=== PATIENT | male | born 1980 | race Caucasian/White ===

== ENCOUNTER 2016-10-20 22:56 | Emergency (ER) | payer MEDICAID ==
[~2016-10-20] VITALS: Ht 165.1 cm; Wt 74.8 kg
[~2016-10-20 22:56] MED LIST: DEXT30SUSP PO; No Home Medications; PROZ20CA11 PO; TRAZ50TA4 PO; deltasone PO; flexeril PO
[2016-10-20 23:19] LABS: MEAN CORPUSCULAR HEMOGLOBIN 29.3 pg (27.0-33.0); MEAN CORPUSCULAR HGB CONC 34.6 g/dl (32.0-36.5); MEAN CORPUSCULAR VOLUME 84.6 fl (80.0-96.0); RED CELL DISTRIBUTION WIDTH 13.7 % (11.5-14.5); WHITE BLOOD COUNT 12.4 K/mm3 (4.0-10.0)
[2016-10-20 23:54] LABS: ALBUMIN 4.6 GM/DL (3.2-5.2); ALBUMIN/GLOBULIN RATIO 1.64 (1.00-1.93); ALKALINE PHOSPHATASE 78 U/L (45-117); ALT/SGPT 24 U/L (12-78); ANION GAP 13 MEQ/L (8-16); AST/SGOT 20 U/L (15-37); BILIRUBIN,DIRECT 0.1 MG/DL (0.0-0.2); BILIRUBIN,TOTAL 0.4 MG/DL (0.2-1.0); BLOOD UREA NITROGEN 13 MG/DL (7-18); CALCIUM LEVEL 7.3 MG/DL (8.5-10.1); CARBON DIOXIDE LEVEL 26 MEQ/L (21-32); CHLORIDE LEVEL 106 MEQ/L (98-107); CREATININE FOR GFR 1.27 MG/DL (0.70-1.30); GLOMERULAR FILTRATION RATE > 60.0 (>60); GLUCOSE, FASTING 111 MG/DL (70-105); POTASSIUM SERUM 3.1 MEQ/L (3.5-5.1); SODIUM LEVEL 145 MEQ/L (136-145); TOTAL PROTEIN 7.4 GM/DL (6.4-8.2)
[2016-10-21 00:14] LABS: AMPHETAMINES LEVEL URINE NEGATIVE (NEGATIVE); BENZODIAZEPINES URINE NEGATIVE (NEGATIVE); COCAINE METABOLITE URINE NEGATIVE (NEGATIVE); CONTROL LINE INT CTR LINE PRESENT; METHADONE URINE NEGATIVE (NEGATIVE); OPIATES URINE NEGATIVE (NEGATIVE); TRICYCLIC ANTIDEPRESS URINE NEGATIVE (NEGATIVE)
[2016-10-21] MEDS ORDERED: ACETAMINOPHEN 325 MG TAB As Ordered ONE (04:57)
[2016-10-21] MEDS ORDERED: FIORICET TAB PO ONE (09:15)
--- NOTE | 2016-10-21 12:18 | EDDOCDS ---
Physician Documentation [facility] Name: Rajendra Coto Age: 36 yrs Sex: Male : 1980 Arrival Date: 10/20/2016 Time: 22:56 Bed OBSERVATION Private MD: Disposition: 10/21/16 12:04 Discharged to Home/Self Care. Impression: Bipolar disorder, current episode depressed, mild, Alcohol abuse. - Condition is Stable. - Discharge Instructions: Alcohol Intoxication. - Medication Reconciliation, Local Pharmacy Hours form. - Follow up: Private Physician; When: Call to arrange an appointment; Reason: Continuance of care. - Problem is chronic. - Symptoms have improved. Historical: - Allergies: No known drug Allergies; - Home Meds: 1. Percocet 5-325 mg Oral tab 1 tab every 4 hours 2. lisinopril 20 mg Oral tab 1 tab once daily - PMHx: Hypertension; Depression; Anxiety; - PSHx: Heart Surgery; - Social history: Smoking status: Patient states was never smoker of tobacco. Patient uses alcohol occasionally. street drugs, marijuana, No barriers to communication noted. - Family history: Not pertinent. - : The pt / caregiver states he / she is not on anticoagulants. Home medication list is obtained from the patient. - Exposure Risk Screening:: None identified. Vital Signs: 10/20 23:05 BP 125 / 82 (auto/); tm5 23:06 Pulse Ox 96% ; tm5 23:12 BP 125 / 82; Pulse 108; Resp 20; Temp 98.3(TE); Pulse Ox 98% on R/A; Weight 74.84 kg / tm5 164.99 lbs; Height 5 ft. 5 in. (165.10 cm); Pain 0/10; 23:30 BP 119 / 71 (auto/); tm5 23:31 Pulse 94 MON; Pulse Ox 95% on R/A; Pain 0/10; tm5 10/21 00:00 BP 119 / 74 (auto/); Pulse 103 MON; Resp 18 S; Pulse Ox 96% on R/A; tm5 00:00 tm5 00:30 BP 115 / 70 (auto/); tm5 00:30 Pulse 93 MON; tm5 01:00 BP 115 / 63 (auto/); tm5 01:01 Pulse 94 MON; tm5 01:30 BP 118 / 60 (auto/); tm5 01:31 Pulse 96 MON; tm5 02:00 BP 111 / 63 (auto/); tm5 02:01 Pulse 95 MON; tm5 02:30 BP 107 / 53 (auto/); tm5 02:30 Pulse 97 MON; tm5 03:00 BP 103 / 57 (auto/); tm5 03:00 Pulse 97 MON; tm5 03:30 BP 105 / 56 (auto/); tm5 03:30 Pulse 101 MON; Resp 18 S; Pulse Ox 98% on R/A; tm5 04:00 BP 107 / 57 (auto/); tm5 04:00 Pulse 98 MON; tm5 04:30 BP 101 / 57 (auto/); tm5 04:30 Pulse 109 MON; Resp 20 S; Pulse Ox 98% on R/A; tm5 05:35 BP 112 / 58; Pulse 98; Resp 20; Pulse Ox 99% on R/A; Pain 5/10; tm5 12:14 BP 147 / 97; Pulse 96; Resp 16; Temp 98.1(O); Pulse Ox 95% on R/A; Pain 0/10; ead 10/20 23:12 Body Mass Index 27.46 (74.84 kg, 165.10 cm) tm5 MDM: 10/20 23:06 Consult PFS/PSA/Director Specialty ordered. cs11 23:06 Consult PFS/PSA/Director Specialty: Patient's case requires discussion with on-call cs11 Psychiatrist ordered. 23:06 PSA/PFS to call Nursing Warehouse Shipping Supervisor, to enter patient data on [place] Safe Act if patient cs11 involuntarily admitted or transferred for SI or HI ordered. 23:06 Confirm accurate psychiatric medication list and times of last dosage ordered. cs11 23:06 Detain Pt Until Medically/PFS Cleared ordered. cs11 23:07 Acetaminophen Level Ordered. EDMS 23:07 Basic Metabolic Profile Ordered. EDMS 23:07 Complete Blood Count Ordered. EDMS 23:07 Drug Eval Toxicology ED Only Ordered. EDMS 23:07 Ethyl Alcohol (ethanol) Ordered. EDMS 23:07 Liver Profile Ordered. EDMS 23:07 Salicylate Level Ordered. EDMS 23:07 Thyroid Stimulating Hormone Ordered. EDMS 23:13 ECG WITH READING ER PHYS+CARDIAG ordered. EDMS 10/21 00:09 Acetaminophen Level Reviewed. cs11 00:09 Basic Metabolic Profile Reviewed. cs11 00:09 Complete Blood Count Reviewed. cs11 00:09 Ethyl Alcohol (ethanol) Reviewed. cs11 00:09 Salicylate Level Reviewed. cs11 00:09 Thyroid Stimulating Hormone Reviewed. cs11 00:09 Liver Profile Reviewed. cs11 04:41 Drug Eval Toxicology ED Only Reviewed. cs11 04:43 Acetaminophen Level Ordered. EDMS 04:43 Salicylate Level Ordered. EDMS 04:58 Acetaminophen Tablet 650 mg PO once ordered. tm5 05:35 REGULAR DIET PLASTIC PEDRO+DIET ordered. EDMS 05:39 Acetaminophen Level Reviewed. cs11 05:39 Salicylate Level Reviewed. cs11 05:43 Consult PFS/PSA/Socail Worker: Cleared medically for eval ordered. cs11 06:31 Consult PFS/PSA/Director Specialty complete. tm5 06:31 Consult PFS/PSA/Director Specialty: Patient's case requires discussion with on-call tm5 Psychiatrist complete. 08:03 Fioricet 1 tab-caps PO once ordered. fg 10:22 Financial registration complete. mm15 10:24 [facility] Payment Agreement was scanned into [employer] and attached to record. mm15 10:51 Consult PFS/PSA/Socail Worker: Cleared medically for eval complete. ml4 11:34 PSA/PFS to call Nursing Warehouse Shipping Supervisor, to enter patient data on [place] Safe Act if patient ml4 involuntarily admitted or transferred for SI or HI complete. 11:55 REGULAR DIET PLASTIC PEDRO+DIET ordered. EDMS 12:14 PSA Outpatient Referrals was scanned into [employer] and attached to record. ml4 Administered Medications: 04:59 Drug: Acetaminophen 650 mg [acetaminophen 325 mg tablet (2 tabs)] Route: PO; tm5 05:36 Follow up: Response: No Adverse Reaction; Pain is decreased tm5 09:36 Drug: Fioricet 1 tab-caps {Note: medication received from pharmacy.} Route: PO; ead Signatures: Dispatcher [employer] EDMS Kaleb Soledad, PSA PSA ml4 César Nassar, DO cs11 Edgar Celis mm15 Shauna Watters RN RN Annie Brizuela MD MD fg Ashleigh Ruth RN RN tm5 The chart was reviewed and I authenticate all verbal orders and agree with the evaluation and treatment provided.Attachments: 10:24 [facility] Payment Agreement mm15 MTDD
--- NOTE | 2016-10-21 12:18 | EDDOCDS ---
Nurse's Notes [facility] Name: Rajendra Coto Age: 36 yrs Sex: Male : 1980 Arrival Date: 10/20/2016 Time: 22:56 Bed OBSERVATION Private MD: Diagnosis: Bipolar disorder, current episode depressed, mild;Alcohol abuse Presentation: 10/20 23:07 Presenting complaint: Patient states: pt states "I don't want to live anymore so tm5 tonight I have a lot of Alcohol to drink, I have smoked a lot of [place], I took some Percocet (unknown amount & unknown time), I took some Ibuprofen also (unknown amount & unknown time), My mom is dying & I don't want to be here without her", pt arrived with [place] . Mental Health Triage Level: Level 2: The patient displays active suicidal ideations. The patient was brought to the ED for evaluation because of a legal pickup order. Adult Sepsis Screening: The patient does not have new or worsening altered mentation. Patient's respiratory rate is less than 22. Systolic blood pressure is greater than 100. Patient has a qSOFA score of 0- Negative Sepsis Screen. Suicide/Homicide risk assessment- The patient admits to and/or has been reported to be having suicidal ideations. The patient reports that he/she has a recent or current history of substance abuse. The patient reports that he/she has a prior history of suicide attempt and/or organized plan. The patient reports that he/she has experienced a significant life altering event in the last 30 days. Status: Patient is not a radiology equipment servicer or dependent. Transition of care: patient was not received from another setting of care. 23:07 Acuity: CATALINA Level 3 tm5 23:07 Method Of Arrival: Police Car tm5 Triage Assessment: 23:12 General: Appears in no apparent distress, unkempt, Behavior is cooperative, drowsy. tm5 Pain: Denies pain. Pt Declines HIV testing. The patient is triaged at the bedside. See Assessment in Nurses Notes section of ED record. Neurological: Level of Consciousness is awake, alert, Oriented to person, place, time. Cardiovascular: Rhythm is sinus tachycardia No ectopy. Respiratory: Airway is patent Respiratory effort is even, unlabored, Respiratory pattern is regular, symmetrical, Breath sounds are clear bilaterally. GI: Abdomen is non- distended Bowel sounds present X 4 quads. Abd is soft and non tender X 4 quads. : No deficits noted. Derm: Skin is pink, warm & dry. normal. Historical: - Allergies: No known drug Allergies; - Home Meds: 1. Percocet 5-325 mg Oral tab 1 tab every 4 hours 2. lisinopril 20 mg Oral tab 1 tab once daily - PMHx: Hypertension; Depression; Anxiety; - PSHx: Heart Surgery; - Social history: Smoking status: Patient states was never smoker of tobacco. Patient uses alcohol occasionally. street drugs, marijuana, No barriers to communication noted. - Family history: Not pertinent. - : The pt / caregiver states he / she is not on anticoagulants. Home medication list is obtained from the patient. - Exposure Risk Screening:: None identified. Screenin:15 Screening information is obtained from the patient. Fall risk: At risk due to apparent tm5 chemical impairment, apparent cognitive impairment. Assistance ADL's: requires no assistance with activities of daily living. Abuse/DV Screen: The patient / caregiver reports he/she is: not in a situation that causes fear, pain or injury. Nutritional screening: No deficits noted. Advance Directives: Currently, there is no health care proxy. There is no active DNR order. home support is adequate. Assessment: 23:15 General: see triage assessment . tm5 23:53 General: this RN called Poison control recommendations for 6 hour observation & Basic tm5 labs with Tylenol & Aspirin, they will follow up later, MD aware of this . 10/21 00:02 Reassessment: Patient appears in no apparent distress at this time. Patient states tm5 symptoms have improved. pt provided with Boxed meal & kamlesh sabino . Cardiovascular: Rhythm is sinus tachycardia No ectopy. 00:52 Reassessment: Patient appears in no apparent distress at this time. pt resting quietly tm5 at this time, eyes closed, respirations easy . Cardiovascular: Rhythm is sinus rhythm No ectopy. 02:04 Reassessment: Patient appears in no apparent distress at this time. pt resting with tm5 eyes closed, resp easy, appears to be sleeping . Cardiovascular: Rhythm is sinus rhythm No ectopy. 04:30 General: Appears in no apparent distress, Behavior is cooperative. Pain: Denies pain. kas2 Cardiovascular: Rhythm is sinus rhythm. Respiratory: Airway is patent Respiratory effort is even, unlabored. Derm: Skin is normal. 04:33 Reassessment: Patient appears in no apparent distress at this time. pt remains tm5 sleeping, resp easy. Cardiovascular: Rhythm is sinus tachycardia No ectopy. 04:50 General: pt out of bed going through his belongings telling staff that his wallet is tm5 missing & he needs to go home, told pt he wasn't able to leave the ER because he voiced issues of Suicidal thoughts & he had repeat labs to be drawn, pt then complains of headache & returns to bed asking for Tylenol for headache & [place] MD aster aware, orders received . 05:01 General: provided pt with kamlesh sabino & boxed meal . tm5 05:35 General: pt moved to [address] area. tm5 05:36 General: Appears in no apparent distress, Behavior is cooperative, restless. General: slm pt talking on phone at this time security observing . Respiratory: Airway is patent Respiratory effort is even, unlabored. 06:07 General: Appears in no apparent distress, Behavior is cooperative. Respiratory: Airway af2 is patent Respiratory effort is even, unlabored. Derm: Skin is normal. 06:40 General: Appears in no apparent distress, Behavior is cooperative. Pain: Denies pain. kas2 Respiratory: Airway is patent Respiratory effort is even, unlabored. Derm: Skin is normal. 09:00 General: Appears in no apparent distress, comfortable, Behavior is cooperative. ead Neurological: Level of Consciousness is awake, alert, obeys commands. Respiratory: Airway is patent Respiratory effort is even, unlabored. Derm: Skin is pink, warm & dry. 10:00 General: Appears in no apparent distress, Behavior is cooperative. Respiratory: Airway ead is patent Respiratory effort is even, unlabored. Derm: Skin is pink, warm & dry. 11:00 General: Appears in no apparent distress, comfortable, Behavior is cooperative. ead Respiratory: Airway is patent Respiratory effort is even, unlabored. Derm: Skin is pink, warm & dry. 12:16 General: Appears in no apparent distress, comfortable, Behavior is appropriate for age, ead cooperative. Pain: Denies pain. Neurological: Level of Consciousness is awake, alert, obeys commands, Oriented to person, place, time. Respiratory: Airway is patent Respiratory effort is even, unlabored. Derm: Skin is pink, warm & dry. Mental Health Eval: 10/20 23:12 Status: The patient is not a radiology equipment servicer or dependent. Referral cl Information: Evaluation referral is generated by a police agency: [employer] on .. The patient was referred for evaluation because Pt reportedly drinking tonight and apparently ingested medications, expressed SI to Police. Pt has hx of depression and ETOH abuse, prior psych admission to [facility] 08/07 for depression/SI. . 10/21 11:10 Mental health consult is initiated at 11:00. [facility] Behavioral Health: The patient is not ml4 an established patient of [facility] Behavioral Health. Subjective: The patients chief complaint is pt states, "I don't want to kill myself, I was just drunk." Pt reports a significant alcohol and substance abuse hx, sober for the past 20 months. Admits running into a friend at the [facility] last night and states, "I just got hammered." States he ingested some Percocet and drank a significant amount of alcohol not to kill himself, but because he wanted to "libertarian with his old friend." Pt adamantly denies SI and HI, able to CFS. He reports a hx of one previous [facility] after voicing SI with plan to OD or jump [place]. Pt is wanting to be discharged with follow up to [facility] on Sunday for housing. . Delusions are denied. Patient's mood is anxious, Hallucinations are denied. Mental Health history: ADHD, alcohol abuse, depression, abusing prescription drugs. Mental Health Admissions: [facility] Current Outpatient Mental Health Services: None. Current living environment is The patient currently lives alone at [facility](emergency housing, arranged by [facility]) until he is able follow up with [facility] on Sunday. Pt admits leaving his previous residence with cousin due to "wanting to do things on my own." . The patient is single. Patient presents to Emergency Department with the following symptoms within the past 2 weeks: alcohol abuse, anger, anxiety, depressed mood, drug abuse, poor concentration, poor impulse control, suicidal ideation with no plan. Substance abuse: Patient uses of liquor, 1 bottle Patient uses opiates Type Used: Percocet Patient uses tobacco 1/2 pack Frequency daily. Mental status exam: Patients appearance is appropriate, Patient's behavior is cooperative, Speech is normal. Affect is restricted. Mood is anxious. Hallucinations are denied. Appetite is normal. Memory is good. Energy level is normal. Content of thought is normal. Thought process is intact. Cognitive level is oriented to person, place, time and situation Patient's insight is poor. Judgement is fair. Rapport with interviewer is good. Suicidal Ideation is denied. Homicidal ideation is denied. 12:03 Disposition: Medically cleared for disposition by César Nassar DO Psychiatric Consult ml4 is performed by phone with Dr Magnus Rizo MD. [facility] Admission Criteria: Not Applicable. [place] Safe Act: [place] Safe Act is not applicable because the patient does not display any suicidal or homicidal ideations and does not pose a risk to self or others. DSM-V Differential Diagnosis: Alcohol Intoxication. Insurance Pre-Certification: Not Required. Narrative: Pt is able to be discharged from [facility]. He continues to deny SI and HI, able to CFS. Referrals for outpt services was given at bedside and directed to follow up with [facility] for further tx. Psych: 10/20 23:17 Mental Health Triage Level: Level 2: The patient displays active suicidal ideations. tm5 The patient was brought to the ED for evaluation because of a legal pickup order. Subjective: The patients chief complaint is pt states "I wan to , I don't want to ricci life anymore, my mom is sick & I want to with her". Delusions are denied. Patient's mood is hopeless. Objective: Patient is cooperative, using poor eye contact, Speech is normal. Affect is appropriate. Substance abuse: Patient uses beer, 12 daily. Last use was 1 hours ago. Patient uses marijuana 2-4 joints rarely smoked all day today Last use was 1 hours ago. Consultation: ED MD notified of patients status, 23:19 Emergency MH Worker made aware of pt status. Vital Signs: 23:05 BP 125 / 82 (auto/); tm5 23:06 Pulse Ox 96% ; tm5 23:12 BP 125 / 82; Pulse 108; Resp 20; Temp 98.3(TE); Pulse Ox 98% on R/A; Weight 74.84 kg; tm5 Height 5 ft. 5 in. (165.10 cm); Pain 0/10; 23:30 BP 119 / 71 (auto/); tm5 23:31 Pulse 94 MON; Pulse Ox 95% on R/A; Pain 0/10; tm5 10/21 00:00 BP 119 / 74 (auto/); Pulse 103 MON; Resp 18 S; Pulse Ox 96% on R/A; tm5 00:00 tm5 00:30 BP 115 / 70 (auto/); tm5 00:30 Pulse 93 MON; tm5 01:00 BP 115 / 63 (auto/); tm5 01:01 Pulse 94 MON; tm5 01:30 BP 118 / 60 (auto/); tm5 01:31 Pulse 96 MON; tm5 02:00 BP 111 / 63 (auto/); tm5 02:01 Pulse 95 MON; tm5 02:30 BP 107 / 53 (auto/); tm5 02:30 Pulse 97 MON; tm5 03:00 BP 103 / 57 (auto/); tm5 03:00 Pulse 97 MON; tm5 03:30 BP 105 / 56 (auto/); tm5 03:30 Pulse 101 MON; Resp 18 S; Pulse Ox 98% on R/A; tm5 04:00 BP 107 / 57 (auto/); tm5 04:00 Pulse 98 MON; tm5 04:30 BP 101 / 57 (auto/); tm5 04:30 Pulse 109 MON; Resp 20 S; Pulse Ox 98% on R/A; tm5 05:35 BP 112 / 58; Pulse 98; Resp 20; Pulse Ox 99% on R/A; Pain 5/10; tm5 12:14 BP 147 / 97; Pulse 96; Resp 16; Temp 98.1(O); Pulse Ox 95% on R/A; Pain 0/10; ead 10/20 23:12 Body Mass Index 27.46 (74.84 kg, 165.10 cm) tm5 Vitals: 10/20 23:12 Log In Time N/A - ambulance arrival. tm5 ED Course: 22:57 Patient visited by Kerri Anders, Tar And Ammonia Pump Operator. [facility] 22:57 Patient moved to [facility] 22:58 César Nassar DO is Attending Physician. cs11 22:58 Patient visited by César Nassar DO. cs11 23:07 Patient visited by Ashleigh Ruth RN. tm5 23:11 Triage Initiated tm5 23:15 Awaiting ED physician evaluation. tm5 23:15 The patient / caregiver is instructed regarding the plan of care and ED course. Patient tm5 has correct armband on for positive identification. Placed in psych safe attire. Bed in low position. Call light in reach. Side rails up X2. Security observing. hall monitor on. Pulse ox on. NIBP on. 23:15 Inserted saline lock: 18 gauge in right antecubital area and blood collected. The tm5 patient tolerated the procedure well. Labs drawn. (by ED staff). Sent per order to lab. 23:33 Patient moved to OBSERVATION cs11 23:40 EKG done. (by ED staff). Reviewed by César Nassar DO. jmv 23:42 Patient visited by Guille Roque PCA. jmv 10/21 00:02 Patient visited by Ashleigh Ruth,SAKINA. tm5 00:52 Patient visited by Ashleigh Ruth,SAKINA. tm5 02:04 Patient visited by Ashleigh Ruth,SAKINA. tm5 04:33 Patient visited by Ashleigh Ruth,SAKINA. tm5 04:41 Patient visited by Ashleigh Ruth,SAKINA. tm5 04:58 Patient visited by Ashleigh Ruth,SAKINA. tm5 05:33 Patient moved to [facility] mas 05:34 Patient visited by Ashleigh Ruth,SAKINA. tm5 05:35 Patient visited by Leola Sherman LPN. slm 05:35 Discontinued lock intact, bleeding controlled, pressure dressing applied, No tm5 redness/swelling at site. 05:37 Patient visited by Leola Sherman LPN. slm 05:44 Patient visited by Ronnell Beltrán. mas 05:44 Patient moved to OBSERVATION cs11 05:48 Patient name changed from Rajendra\\S\\\\S\\Nnamdi\\S\\ to Rajendra\\S\\ \\S\\Nnamdi. EDMS 05:52 Pt greeted and oriented to ED. Patient advised of names of staff involved in care, [facility] location of call [place], wait times and NPO status. Patient has correct armband on for positive identification. Placed in psych safe attire. Bed in low position. Call light in reach. Side rails up X 1. Security observing. Property property removed prior to arrival in [facility]. Upon arrival pt belongings handed over to SA \\T\\ which time it was inventoried & placed in locked locker #3. Door closed. Noise minimized. Moved to private room. PO fluids given. Verbal reassurance given. Warm blanket given. Pillow given. Psych Safety Check: Location: Psych Room. Visual Assessment: agitated, cooperative \\T\\ this time. 06:03 Patient visited by Ronnell Beltrán. mas 06:08 Patient visited by Latoya Easley RN. af2 06:12 Leola Sherman LPN is Primary Nurse. slm 06:15 Patient visited by Ronnell Beltrán. mas 06:30 Patient visited by Ronnell Beltrán. mas 06:40 Patient visited by Selam Castro RN. kas2 06:45 Patient visited by Rowan Tee PCA. tmm1 07:00 Patient visited by Rowan Tee PCA. tmm1 07:06 Report received from Leola Jade LPN. ead 07:18 Patient visited by Rowan Tee BROOM BUILDER. tmm1 07:30 Psych Safety Check: Location: Psych Room. Visual Assessment: pt came out of room tmm1 inquiring when he will be able to speak to a social and human services assistant, as passed off during report pt informed social and human services assistant will be in around 10am when clinically sober to discuss care plan. Pt accepted that information and returned to room. 07:45 Psych Safety Check: Location: Psych Room. Visual Assessment: Cooperative. tmm1 07:47 Psych Safety Check: Location: Psych Room. Visual Assessment: pt request for tylenol for tmm1 a headache, RN informed. 07:52 Patient visited by Rowan Tee BROOM BUILDER. tmm1 08:09 Patient visited by Rowan Tee BROOM BUILDER. tmm1 08:25 Patient visited by Rowan Tee, BROOM BUILDER. tmm1 08:45 Patient visited by Rowan Tee, BROOM BUILDER. tmm1 09:17 Patient visited by Rowan Tee, BROOM BUILDER. tmm1 09:39 Patient visited by Rowan Tee BROOM BUILDER. tmm1 10:02 Patient visited by Homar Hughes Security Aide. pjf 10:13 Patient visited by Homar Hughes Security Aide. pjf 10:24 [facility] [place] was scanned into Snocap and attached to record. mm15 10:35 Patient visited by Homar Hughes Security Aide. pjf 10:44 Patient visited by Homar Hughes Security Aide. pjf 10:46 Patient visited by Homar Hughes Security Aide. pjf 11:14 Patient visited by Homar Hughes Security Aide. pjf 11:32 Patient visited by Homar Hughes Security Aide. pjf 11:47 Patient visited by Homar Hughes Security Aide. pjf 12:08 Patient visited by Rowan Tee PCA. tmm1 12:14 [facility] Outpatient Referrals was scanned into Snocap and attached to record. ml4 12:16 No procedures done that require assistance. ead Administered Medications: 04:59 Drug: Acetaminophen 650 mg [acetaminophen 325 mg tablet (2 tabs)] Route: PO; tm5 05:36 Follow up: Response: No Adverse Reaction; Pain is decreased tm5 09:36 Drug: Fioricet 1 tab-caps {Note: medication received from pharmacy.} Route: PO; ead Order Results: Lab Order: Acetaminophen Level; SPEC'M 10/20/16 23:10 Test: ACETAMINOPHEN LEVEL; Value: < 2.0; Range: 10.0-30.0; Abnormal: Below low normal; Units: UG/ML; Status: F Lab Order: Basic Metabolic Profile; SPEC'M 10/20/16 23:10 Test: GLUCOSE, FASTING; Value: 111; Range: 70-105; Abnormal: Above high normal; Units: MG/DL; Status: F Test: BLOOD UREA NITROGEN; Value: 13; Range: 7-18; Units: MG/DL; Status: F Test: CREATININE FOR GFR; Value: 1.27; Range: 0.70-1.30; Units: MG/DL; Status: F Test: GLOMERULAR FILTRATION RATE; Value: > 60.0; Range: >60; Status: F Test: SODIUM LEVEL; Value: 145; Range: 136-145; Units: MEQ/L; Status: F Test: POTASSIUM SERUM; Value: 3.1; Range: 3.5-5.1; Abnormal: Below low normal; Units: MEQ/L; Status: F Test: CHLORIDE LEVEL; Value: 106; Range: 98-107; Units: MEQ/L; Status: F Test: CARBON DIOXIDE LEVEL; Value: 26; Range: 21-32; Units: MEQ/L; Status: F Test: ANION GAP; Value: 13; Range: 8-16; Units: MEQ/L; Status: F Test: CALCIUM LEVEL; Value: 7.3; Range: 8.5-10.1; Abnormal: Below low normal; Units: MG/DL; Status: F Test Note: ; Units are mL/min/1.73 m2 Chronic Kidney Disease Staging per NKF: Stage I & II GFR >=60 Normal to Mildly Decreased Stage III GFR 30-59 Moderately Decreased Stage IV GFR 15-29 Severely Decreased Stage V GFR <15 Very Little GFR Left ESRD GFR <15 on AUTOMATIC SPINNING LATHE OPERATOR Lab Order: Complete Blood Count; SPEC'M 10/20/16 23:10 Test: WHITE BLOOD COUNT; Value: 12.4; Range: 4.0-10.0; Abnormal: Above high normal; Units: K/mm3; Status: F Test: RED BLOOD COUNT; Value: 5.50; Range: 4.30-6.10; Units: M/mm3; Status: F Test: HEMOGLOBIN; Value: 16.1; Range: 14.0-18.0; Units: g/dl; Status: F Test: HEMATOCRIT; Value: 46.6; Range: 42.0-52.0; Units: %; Status: F Test: MEAN CORPUSCULAR VOLUME; Value: 84.6; Range: 80.0-96.0; Units: fl; Status: F Test: MEAN CORPUSCULAR HEMOGLOBIN; Value: 29.3; Range: 27.0-33.0; Units: pg; Status: F Test: MEAN CORPUSCULAR HGB CONC; Value: 34.6; Range: 32.0-36.5; Units: g/dl; Status: F Test: RED CELL DISTRIBUTION WIDTH; Value: 13.7; Range: 11.5-14.5; Units: %; Status: F Test: PLATELET COUNT, AUTOMATED; Value: 306; Range: 150-450; Units: k/mm3; Status: F Lab Order: Drug Eval Toxicology ED Only; SPEC'M 10/20/16 23:56 Test: AMPHETAMINES LEVEL URINE; Value: NEGATIVE; Range: NEGATIVE; Status: F Test: BARBITURATES URINE; Value: NEGATIVE; Range: NEGATIVE; Status: F Test: BENZODIAZEPINES URINE; Value: NEGATIVE; Range: NEGATIVE; Status: F Test: CANNABINOIDS URINE; Value: POSITIVE; Range: NEGATIVE; Abnormal: Above high normal; Status: F Test: COCAINE METABOLITE URINE; Value: NEGATIVE; Range: NEGATIVE; Status: F Test: METHADONE URINE; Value: NEGATIVE; Range: NEGATIVE; Status: F Test: OPIATES URINE; Value: NEGATIVE; Range: NEGATIVE; Status: F Test: TRICYCLIC ANTIDEPRESS URINE; Value: NEGATIVE; Range: NEGATIVE; Status: F Test Note: ; FALSE POSITIVE RESULTS CAN BE CAUSED BY THE USE OF PANTOPRAZOLE (PROTONIX). Lab Order: Ethyl Alcohol (ethanol); SPEC' 10/20/16 23:10 Test: ETHYL ALCOHOL (ETHANOL); Value: 0.318; Range: 0.000-0.010; Abnormal: Above high normal; Units: %; Status: F Lab Order: Liver Profile; SPEC' 10/20/16 23:10 Test: AST/SGOT; Value: 20; Range: 15-37; Units: U/L; Status: F Test: ALT/SGPT; Value: 24; Range: 12-78; Units: U/L; Status: F Test: ALKALINE PHOSPHATASE; Value: 78; Range: 45-117; Units: U/L; Status: F Test: BILIRUBIN,TOTAL; Value: 0.4; Range: 0.2-1.0; Units: MG/DL; Status: F Test: BILIRUBIN,DIRECT; Value: 0.1; Range: 0.0-0.2; Units: MG/DL; Status: F Test: TOTAL PROTEIN; Value: 7.4; Range: 6.4-8.2; Units: GM/DL; Status: F Test: ALBUMIN; Value: 4.6; Range: 3.2-5.2; Units: GM/DL; Status: F Test: ALBUMIN/GLOBULIN RATIO; Value: 1.64; Range: 1.00-1.93; Status: F Lab Order: Salicylate Level; SPEC' 10/20/16 23:10 Test: SALICYLATE LEVEL; Value: 2.2; Range: 5.0-30.0; Abnormal: Below low normal; Units: MG/DL; Status: F Lab Order: Thyroid Stimulating Hormone; SPEC' 10/20/16 23:10 Test: THYROID STIMULATING HORMONE; Value: 4.730; Range: 0.358-3.740; Abnormal: Above high normal; Units: uIU/ML; Status: F Lab Order: Acetaminophen Level; SPEC'M 10/21/16 04:51 Test: ACETAMINOPHEN LEVEL; Value: < 2.0; Range: 10.0-30.0; Abnormal: Below low normal; Units: UG/ML; Status: F Lab Order: Salicylate Level; SPEC'M 10/21/16 04:51 Test: SALICYLATE LEVEL; Value: 2.1; Range: 5.0-30.0; Abnormal: Below low normal; Units: MG/DL; Status: F Outcome: 05:37 Property removed, inventory done, secured in belongings bag- placed in locked locker. slm 12:04 Discharge ordered by Provider. fg 12:15 Discharge Assessment: Patient awake and alert. obeys commands, Oriented to person, ead place and time. patient administered narcotics - no. The following High Risk Discharge criteria are identified: Yes, Pt arrived with ETOH intoxication, pt evaluated by [facility] and provided safe discharge instructions. Discharged to home ambulatory, via cab provided by PSA. Condition: improved. Discharge instructions given to patient, Instructed on discharge instructions, follow up and referral plans. Demonstrated understanding of instructions, Pt was receptive of discharge instructions/ teaching. No special radiology studies were completed. 12:16 Patient left the ED. ead Signatures: Dispatcher [employer] EDMS Jono Fuentes, PSA PSA cl Ellen, Homar, Security Aide [facility] Soledad Manuel, PSA PSA ml4 Ronnell Beltrán Craig, DO DO cs11 McLjailyn, Rowan, BROOM BUILDER BROOM BUILDER tmm1 Edgar Celis mm15 Leola Sherman,ROUND CORNER CUTTER OPERATOR ROUND CORNER CUTTER OPERATOR Shauna Craft,RN Kerri Mancera, Tar And Ammonia Pump Operator Unit Latoya Esteves,RN RN Annie Green MD MD fg Smith, Kim,SAKINA RN franky2 Guille Roque, BROOM BUILDER BROOM BUILDER Ashleigh Dumont,RN RN tm5 Corrections: (The following items were deleted from the chart) 10/20 23:43 23:07 Presenting complaint: Patient states: pt states "I don't want to live anymore so tm5 tonight I have a lot of Alcohol to drink, I have smoked a lot of [place], I took some Percocet (unknown amount), I took some Ibuprofen also, My mom is dying & I don't want to be here without her", pt arrived with [place] [employer] tm5 MTDD
--- NOTE | 2016-10-22 15:31 | ECGEPIP ---
Stationary ECG Study [facility] - ED Test Date: 2016-10-20 Pat Name: JT CAICEDO Department: Room: - Gender: M Nozzleman: marah : 1980 Requested By: ALMAS MCCARTHY Order Number: [id number] Reading MD: Patricia Beckwith Measurements Intervals [place] Rate: 95 P: 39 [place]: 142 QRS: 25 QRSD: 90 T: 32 QT: 367 QTc: 462 Interpretive Statements SINUS RHYTHM NSTTW ABNORMALITY COMPARED 07/30/14 Electronically Signed On 10-22-2016 15:31:26 EST by Patricia Beckwith
--- NOTE | 2016-10-23 13:17 | EDDOCDS ---
Nurse's Notes [facility] Name: Jt Coto Age: 36 yrs Sex: Male : 1980 Arrival Date: 10/20/2016 Time: 22:56 Bed OBSERVATION Private MD: Diagnosis: Bipolar disorder, current episode depressed, mild;Alcohol abuse Presentation: 10/20 23:07 Presenting complaint: Patient states: pt states "I don't want to live anymore so tm5 tonight I have a lot of Alcohol to drink, I have smoked a lot of [place], I took some Percocet (unknown amount & unknown time), I took some Ibuprofen also (unknown amount & unknown time), My mom is dying & I don't want to be here without her", pt arrived with [place] . Mental Health Triage Level: Level 2: The patient displays active suicidal ideations. The patient was brought to the ED for evaluation because of a legal pickup order. Adult Sepsis Screening: The patient does not have new or worsening altered mentation. Patient's respiratory rate is less than 22. Systolic blood pressure is greater than 100. Patient has a qSOFA score of 0- Negative Sepsis Screen. Suicide/Homicide risk assessment- The patient admits to and/or has been reported to be having suicidal ideations. The patient reports that he/she has a recent or current history of substance abuse. The patient reports that he/she has a prior history of suicide attempt and/or organized plan. The patient reports that he/she has experienced a significant life altering event in the last 30 days. Status: Patient is not a client services director or dependent. Transition of care: patient was not received from another setting of care. 23:07 Acuity: [place] Level 3 tm5 23:07 Method Of Arrival: Police Car tm5 Triage Assessment: 23:12 General: Appears in no apparent distress, unkempt, Behavior is cooperative, drowsy. tm5 Pain: Denies pain. Pt Declines HIV testing. The patient is triaged at the bedside. See Assessment in Nurses Notes section of ED record. Neurological: Level of Consciousness is awake, alert, Oriented to person, place, time. Cardiovascular: Rhythm is sinus tachycardia No ectopy. Respiratory: Airway is patent Respiratory effort is even, unlabored, Respiratory pattern is regular, symmetrical, Breath sounds are clear bilaterally. GI: Abdomen is non- distended Bowel sounds present X 4 quads. Abd is soft and non tender X 4 quads. : No deficits noted. Derm: Skin is pink, warm & dry. normal. Historical: - Allergies: No known drug Allergies; - Home Meds: 1. Percocet 5-325 mg Oral tab 1 tab every 4 hours 2. lisinopril 20 mg Oral tab 1 tab once daily - PMHx: Hypertension; Depression; Anxiety; - PSHx: Heart Surgery; - Social history: Smoking status: Patient states was never smoker of tobacco. Patient uses alcohol occasionally. street drugs, marijuana, No barriers to communication noted. - Family history: Not pertinent. - : The pt / caregiver states he / she is not on anticoagulants. Home medication list is obtained from the patient. - Exposure Risk Screening:: None identified. Screenin:15 Screening information is obtained from the patient. Fall risk: At risk due to apparent tm5 chemical impairment, apparent cognitive impairment. Assistance ADL's: requires no assistance with activities of daily living. Abuse/DV Screen: The patient / caregiver reports he/she is: not in a situation that causes fear, pain or injury. Nutritional screening: No deficits noted. Advance Directives: Currently, there is no health care proxy. There is no active DNR order. home support is adequate. Assessment: 23:15 General: see triage assessment . tm5 23:53 General: this RN called Poison control recommendations for 6 hour observation & Basic tm5 labs with Tylenol & Aspirin, they will follow up later, MD aware of this . 10/21 00:02 Reassessment: Patient appears in no apparent distress at this time. Patient states tm5 symptoms have improved. pt provided with Boxed meal & kamlesh sabino . Cardiovascular: Rhythm is sinus tachycardia No ectopy. 00:52 Reassessment: Patient appears in no apparent distress at this time. pt resting quietly tm5 at this time, eyes closed, respirations easy . Cardiovascular: Rhythm is sinus rhythm No ectopy. 02:04 Reassessment: Patient appears in no apparent distress at this time. pt resting with tm5 eyes closed, resp easy, appears to be sleeping . Cardiovascular: Rhythm is sinus rhythm No ectopy. 04:30 General: Appears in no apparent distress, Behavior is cooperative. Pain: Denies pain. kas2 Cardiovascular: Rhythm is sinus rhythm. Respiratory: Airway is patent Respiratory effort is even, unlabored. Derm: Skin is normal. 04:33 Reassessment: Patient appears in no apparent distress at this time. pt remains tm5 sleeping, resp easy. Cardiovascular: Rhythm is sinus tachycardia No ectopy. 04:50 General: pt out of bed going through his belongings telling staff that his wallet is tm5 missing & he needs to go home, told pt he wasn't able to leave the ER because he voiced issues of Suicidal thoughts & he had repeat labs to be drawn, pt then complains of headache & returns to bed asking for Tylenol for headache & [place] MD aster aware, orders received . 05:01 General: provided pt with kamlesh sabino & boxed meal . tm5 05:35 General: pt moved to [address] area. tm5 05:36 General: Appears in no apparent distress, Behavior is cooperative, restless. General: slm pt talking on phone at this time security observing . Respiratory: Airway is patent Respiratory effort is even, unlabored. 06:07 General: Appears in no apparent distress, Behavior is cooperative. Respiratory: Airway af2 is patent Respiratory effort is even, unlabored. Derm: Skin is normal. 06:40 General: Appears in no apparent distress, Behavior is cooperative. Pain: Denies pain. kas2 Respiratory: Airway is patent Respiratory effort is even, unlabored. Derm: Skin is normal. 09:00 General: Appears in no apparent distress, comfortable, Behavior is cooperative. ead Neurological: Level of Consciousness is awake, alert, obeys commands. Respiratory: Airway is patent Respiratory effort is even, unlabored. Derm: Skin is pink, warm & dry. 10:00 General: Appears in no apparent distress, Behavior is cooperative. Respiratory: Airway ead is patent Respiratory effort is even, unlabored. Derm: Skin is pink, warm & dry. 11:00 General: Appears in no apparent distress, comfortable, Behavior is cooperative. ead Respiratory: Airway is patent Respiratory effort is even, unlabored. Derm: Skin is pink, warm & dry. 12:16 General: Appears in no apparent distress, comfortable, Behavior is appropriate for age, ead cooperative. Pain: Denies pain. Neurological: Level of Consciousness is awake, alert, obeys commands, Oriented to person, place, time. Respiratory: Airway is patent Respiratory effort is even, unlabored. Derm: Skin is pink, warm & dry. Mental Health Eval: 10/20 23:12 Status: The patient is not a client services director or dependent. Referral cl Information: Evaluation referral is generated by a police agency: [employer] on .. The patient was referred for evaluation because Pt reportedly drinking tonight and apparently ingested medications, expressed SI to Police. Pt has hx of depression and ETOH abuse, prior psych admission to [facility] 08/07 for depression/SI. . 10/21 11:10 Mental health consult is initiated at 11:00. [facility] Behavioral Health: The patient is not ml4 an established patient of [facility] Behavioral Health. Subjective: The patients chief complaint is pt states, "I don't want to kill myself, I was just drunk." Pt reports a significant alcohol and substance abuse hx, sober for the past 20 months. Admits running into a friend at the [facility] last night and states, "I just got hammered." States he ingested some Percocet and drank a significant amount of alcohol not to kill himself, but because he wanted to "green party with his old friend." Pt adamantly denies SI and HI, able to CFS. He reports a hx of one previous hospitalization on [facility] 07/30/14 after voicing SI with plan [place]. Pt is wanting to be discharged with follow up to [facility] on Sunday for housing. . Delusions are denied. Patient's mood is anxious, Hallucinations are denied. Mental Health history: ADHD, alcohol abuse, depression, abusing prescription drugs. Mental Health Admissions: [facility] 08/09/14 Current Outpatient Mental Health Services: None. Current living environment is The patient currently lives alone at [facility](emergency housing, arranged by [facility]) until he is able follow up with [facility] on Sunday. Pt admits leaving his previous residence with cousin due to "wanting to do things on my own." . The patient is single. Patient presents to Emergency Department with the following symptoms within the past 2 weeks: alcohol abuse, anger, anxiety, depressed mood, drug abuse, poor concentration, poor impulse control, suicidal ideation with no plan. Substance abuse: Patient uses of liquor, 1 bottle Patient uses opiates Type Used: Percocet Patient uses tobacco 1/2 pack Frequency daily. Mental status exam: Patients appearance is appropriate, Patient's behavior is cooperative, Speech is normal. Affect is restricted. Mood is anxious. Hallucinations are denied. Appetite is normal. Memory is good. Energy level is normal. Content of thought is normal. Thought process is intact. Cognitive level is oriented to person, place, time and situation Patient's insight is poor. Judgement is fair. Rapport with interviewer is good. Suicidal Ideation is denied. Homicidal ideation is denied. 12:03 Disposition: Medically cleared for disposition by Almas Mccarthy DO Psychiatric Consult ml4 is performed by phone with Dr Magnus Rizo MD. [facility] Admission Criteria: Not Applicable. [place] because the patient does not display any suicidal or homicidal ideations and does not pose a risk to self or others. DSM-V Differential Diagnosis: Alcohol Intoxication. Insurance Pre-Certification: Not Required. Narrative: Pt is able to be discharged from [facility]. He continues to deny SI and HI, able to CFS. Referrals for outpt services was given at bedside and directed to follow up with [facility] for further tx. Psych: 10/20 23:17 Mental Health Triage Level: Level 2: The patient displays active suicidal ideations. tm5 The patient was brought to the ED for evaluation because of a legal pickup order. Subjective: The patients chief complaint is pt states "I wan to , I don't want to [place] life anymore, my mom is sick & I want to with her". Delusions are denied. Patient's mood is hopeless. Objective: Patient is cooperative, using poor eye contact, Speech is normal. Affect is appropriate. Substance abuse: Patient uses beer, 12 daily. Last use was 1 hours ago. Patient uses marijuana 2-4 joints rarely smoked all day today Last use was 1 hours ago. Consultation: ED MD notified of patients status, 23:19 Emergency MH Worker made aware of pt status. Vital Signs: 23:05 BP 125 / 82 (auto/); tm5 23:06 Pulse Ox 96% ; tm5 23:12 BP 125 / 82; Pulse 108; Resp 20; Temp 98.3(TE); Pulse Ox 98% on R/A; Weight 74.84 kg; tm5 Height 5 ft. 5 in. (165.10 cm); Pain 0/10; 23:30 BP 119 / 71 (auto/); tm5 23:31 Pulse 94 MON; Pulse Ox 95% on R/A; Pain 0/10; tm5 10/21 00:00 BP 119 / 74 (auto/); Pulse 103 MON; Resp 18 S; Pulse Ox 96% on R/A; tm5 00:00 tm5 00:30 BP 115 / 70 (auto/); tm5 00:30 Pulse 93 MON; tm5 01:00 BP 115 / 63 (auto/); tm5 01:01 Pulse 94 MON; tm5 01:30 BP 118 / 60 (auto/); tm5 01:31 Pulse 96 MON; tm5 02:00 BP 111 / 63 (auto/); tm5 02:01 Pulse 95 MON; tm5 02:30 BP 107 / 53 (auto/); tm5 02:30 Pulse 97 MON; tm5 03:00 BP 103 / 57 (auto/); tm5 03:00 Pulse 97 MON; tm5 03:30 BP 105 / 56 (auto/); tm5 03:30 Pulse 101 MON; Resp 18 S; Pulse Ox 98% on R/A; tm5 04:00 BP 107 / 57 (auto/); tm5 04:00 Pulse 98 MON; tm5 04:30 BP 101 / 57 (auto/); tm5 04:30 Pulse 109 MON; Resp 20 S; Pulse Ox 98% on R/A; tm5 05:35 BP 112 / 58; Pulse 98; Resp 20; Pulse Ox 99% on R/A; Pain 5/10; tm5 12:14 BP 147 / 97; Pulse 96; Resp 16; Temp 98.1(O); Pulse Ox 95% on R/A; Pain 0/10; ead 10/20 23:12 Body Mass Index 27.46 (74.84 kg, 165.10 cm) tm5 Vitals: 10/20 23:12 Log In Time N/A - ambulance arrival. tm5 ED Course: 22:57 Patient visited by Kerri Anders, Lead Shop Operator. [facility] 22:57 Patient moved to [facility] 22:58 Almas Mccarthy DO is Attending Physician. cs11 22:58 Patient visited by Almas Mccarthy DO. cs11 23:07 Patient visited by Ashleigh Ruth RN. tm5 23:11 Triage Initiated tm5 23:15 Awaiting ED physician evaluation. tm5 23:15 The patient / caregiver is instructed regarding the plan of care and ED course. Patient tm5 has correct armband on for positive identification. Placed in psych safe attire. Bed in low position. Call light in reach. Side rails up X2. Security observing. groundwater monitoring technician on. Pulse ox on. NIBP on. 23:15 Inserted saline lock: 18 gauge in right antecubital area and blood collected. The tm5 patient tolerated the procedure well. Labs drawn. (by ED staff). Sent per order to lab. 23:33 Patient moved to OBSERVATION cs11 23:40 EKG done. (by ED staff). Reviewed by Almas Mccarthy DO. jmv 23:42 Patient visited by Guille Roque PCA. jmv 10/21 00:02 Patient visited by Ashleigh Ruth,SAKINA. tm5 00:52 Patient visited by Ashleigh Ruth,SAKINA. tm5 02:04 Patient visited by Ashleigh Ruth,SAKINA. tm5 04:33 Patient visited by Ashleigh Ruth,SAKINA. tm5 04:41 Patient visited by Ashleigh Ruth,SAKINA. tm5 04:58 Patient visited by Ashleigh Ruth,SAKINA. tm5 05:33 Patient moved to [facility] mas 05:34 Patient visited by Ashleigh Ruth,SAKINA. tm5 05:35 Patient visited by Leola Sherman LPN. slm 05:35 Discontinued lock intact, bleeding controlled, pressure dressing applied, No tm5 redness/swelling at site. 05:37 Patient visited by Leola Sherman LPN. slm 05:44 Patient visited by Ronnell Beltrán. mas 05:44 Patient moved to OBSERVATION cs11 05:48 Patient name changed from Jt\\S\\\\S\\Nnamdi\\S\\ to Jt\\S\\ \\S\\Nnamdi. EDMS 05:52 Pt greeted and oriented to ED. Patient advised of names of staff involved in care, [facility] location of call [place], wait times and NPO status. Patient has correct armband on for positive identification. Placed in psych safe attire. Bed in low position. Call light in reach. Side rails up X 1. Security observing. Property property removed prior to arrival in [facility]. Upon arrival pt belongings handed over to SA \\T\\ which time it was inventoried & placed in locked locker #3. Door closed. Noise minimized. Moved to private room. PO fluids given. Verbal reassurance given. Warm blanket given. Pillow given. Psych Safety Check: Location: Psych Room. Visual Assessment: agitated, cooperative \\T\\ this time. 06:03 Patient visited by Ronnell Beltrán. mas 06:08 Patient visited by Latoya Easley RN. af2 06:12 Leola Sherman LPN is Primary Nurse. slm 06:15 Patient visited by Ronnell Beltrán. mas 06:30 Patient visited by Ronnell Beltrán. mas 06:40 Patient visited by Selam Castro RN. kas2 06:45 Patient visited by Rowan Tee PCA. tmm1 07:00 Patient visited by Rowan Tee PCA. tmm1 07:06 Report received from Leola Jade LPN. ead 07:18 Patient visited by Rowan Tee WAREHOUSE DISTRIBUTION SPECIALIST. tmm1 07:30 Psych Safety Check: Location: Psych Room. Visual Assessment: pt came out of room tmm1 inquiring when he will be able to speak to a social media strategist, as passed off during report pt informed social media strategist will be in around 10am when clinically sober to discuss care plan. Pt accepted that information and returned to room. 07:45 Psych Safety Check: Location: Psych Room. Visual Assessment: Cooperative. tmm1 07:47 Psych Safety Check: Location: Psych Room. Visual Assessment: pt request for tylenol for tmm1 a headache, RN informed. 07:52 Patient visited by Rowan Tee WAREHOUSE DISTRIBUTION SPECIALIST. tmm1 08:09 Patient visited by Rowan Tee WAREHOUSE DISTRIBUTION SPECIALIST. tmm1 08:25 Patient visited by Rowan Tee, WAREHOUSE DISTRIBUTION SPECIALIST. tmm1 08:45 Patient visited by Rowan Tee, WAREHOUSE DISTRIBUTION SPECIALIST. tmm1 09:17 Patient visited by Rowan Tee, WAREHOUSE DISTRIBUTION SPECIALIST. tmm1 09:39 Patient visited by Rowan Tee WAREHOUSE DISTRIBUTION SPECIALIST. tmm1 10:02 Patient visited by Homar Hughes Security Aide. pjf 10:13 Patient visited by Homar Hughes Security Aide. pjf 10:24 [facility] Payment Agreement was scanned into [employer] and attached to record. mm15 10:35 Patient visited by Homar Hughes Security Aide. pjf 10:44 Patient visited by Homar Hughes Security Aide. pjf 10:46 Patient visited by Homar Hughes Security Aide. pjf 11:14 Patient visited by Homar Hughes Security Aide. pjf 11:32 Patient visited by Homar Hughes Security Aide. pjf 11:47 Patient visited by Homar Hughes Security Aide. pjf 12:08 Patient visited by Rowan Tee PCA. tmm1 12:14 [facility] Outpatient Referrals was scanned into [employer] and attached to record. ml4 12:16 No procedures done that require assistance. ead 12:53 T-Sheet-- Draft Copy was scanned into [employer] and attached to record. se 10/22 16:03 EKG-ADULT Returned. EDMS 17:41 [facility] Payment Agreement was scanned into [employer] and attached to record. kf3 Administered Medications: 10/21 04:59 Drug: Acetaminophen 650 mg [acetaminophen 325 mg tablet (2 tabs)] Route: PO; tm5 05:36 Follow up: Response: No Adverse Reaction; Pain is decreased tm5 09:36 Drug: Fioricet 1 tab-caps {Note: medication received from pharmacy.} Route: PO; ead Order Results: Lab Order: Acetaminophen Level; SPEC'M 10/20/16 23:10 Test: ACETAMINOPHEN LEVEL; Value: < 2.0; Range: 10.0-30.0; Abnormal: Below low normal; Units: UG/ML; Status: F Lab Order: Basic Metabolic Profile; SPEC'M 10/20/16 23:10 Test: GLUCOSE, FASTING; Value: 111; Range: 70-105; Abnormal: Above high normal; Units: MG/DL; Status: F Test: BLOOD UREA NITROGEN; Value: 13; Range: 7-18; Units: MG/DL; Status: F Test: CREATININE FOR GFR; Value: 1.27; Range: 0.70-1.30; Units: MG/DL; Status: F Test: GLOMERULAR FILTRATION RATE; Value: > 60.0; Range: >60; Status: F Test: SODIUM LEVEL; Value: 145; Range: 136-145; Units: MEQ/L; Status: F Test: POTASSIUM SERUM; Value: 3.1; Range: 3.5-5.1; Abnormal: Below low normal; Units: MEQ/L; Status: F Test: CHLORIDE LEVEL; Value: 106; Range: 98-107; Units: MEQ/L; Status: F Test: CARBON DIOXIDE LEVEL; Value: 26; Range: 21-32; Units: MEQ/L; Status: F Test: ANION GAP; Value: 13; Range: 8-16; Units: MEQ/L; Status: F Test: CALCIUM LEVEL; Value: 7.3; Range: 8.5-10.1; Abnormal: Below low normal; Units: MG/DL; Status: F Test Note: ; Units are mL/min/1.73 m2 Chronic Kidney Disease Staging per NKF: Stage I & II GFR >=60 Normal to Mildly Decreased Stage III GFR 30-59 Moderately Decreased Stage IV GFR 15-29 Severely Decreased Stage V GFR <15 Very Little GFR Left ESRD GFR <15 on RETREAD MOLD OPERATOR Lab Order: Complete Blood Count; SPEC'M 10/20/16 23:10 Test: WHITE BLOOD COUNT; Value: 12.4; Range: 4.0-10.0; Abnormal: Above high normal; Units: K/mm3; Status: F Test: RED BLOOD COUNT; Value: 5.50; Range: 4.30-6.10; Units: M/mm3; Status: F Test: HEMOGLOBIN; Value: 16.1; Range: 14.0-18.0; Units: g/dl; Status: F Test: HEMATOCRIT; Value: 46.6; Range: 42.0-52.0; Units: %; Status: F Test: MEAN CORPUSCULAR VOLUME; Value: 84.6; Range: 80.0-96.0; Units: fl; Status: F Test: MEAN CORPUSCULAR HEMOGLOBIN; Value: 29.3; Range: 27.0-33.0; Units: pg; Status: F Test: MEAN CORPUSCULAR HGB CONC; Value: 34.6; Range: 32.0-36.5; Units: g/dl; Status: F Test: RED CELL DISTRIBUTION WIDTH; Value: 13.7; Range: 11.5-14.5; Units: %; Status: F Test: PLATELET COUNT, AUTOMATED; Value: 306; Range: 150-450; Units: k/mm3; Status: F Lab Order: Drug Eval Toxicology ED Only; SPEC'M 10/20/16 23:56 Test: AMPHETAMINES LEVEL URINE; Value: NEGATIVE; Range: NEGATIVE; Status: F Test: BARBITURATES URINE; Value: NEGATIVE; Range: NEGATIVE; Status: F Test: BENZODIAZEPINES URINE; Value: NEGATIVE; Range: NEGATIVE; Status: F Test: CANNABINOIDS URINE; Value: POSITIVE; Range: NEGATIVE; Abnormal: Above high normal; Status: F Test: COCAINE METABOLITE URINE; Value: NEGATIVE; Range: NEGATIVE; Status: F Test: METHADONE URINE; Value: NEGATIVE; Range: NEGATIVE; Status: F Test: OPIATES URINE; Value: NEGATIVE; Range: NEGATIVE; Status: F Test: TRICYCLIC ANTIDEPRESS URINE; Value: NEGATIVE; Range: NEGATIVE; Status: F Test Note: ; FALSE POSITIVE RESULTS CAN BE CAUSED BY THE USE OF PANTOPRAZOLE (PROTONIX). Lab Order: Ethyl Alcohol (ethanol); SPEC'M 10/20/16 23:10 Test: ETHYL ALCOHOL (ETHANOL); Value: 0.318; Range: 0.000-0.010; Abnormal: Above high normal; Units: %; Status: F Lab Order: Liver Profile; SPEC'M 10/20/16 23:10 Test: AST/SGOT; Value: 20; Range: 15-37; Units: U/L; Status: F Test: ALT/SGPT; Value: 24; Range: 12-78; Units: U/L; Status: F Test: ALKALINE PHOSPHATASE; Value: 78; Range: 45-117; Units: U/L; Status: F Test: BILIRUBIN,TOTAL; Value: 0.4; Range: 0.2-1.0; Units: MG/DL; Status: F Test: BILIRUBIN,DIRECT; Value: 0.1; Range: 0.0-0.2; Units: MG/DL; Status: F Test: TOTAL PROTEIN; Value: 7.4; Range: 6.4-8.2; Units: GM/DL; Status: F Test: ALBUMIN; Value: 4.6; Range: 3.2-5.2; Units: GM/DL; Status: F Test: ALBUMIN/GLOBULIN RATIO; Value: 1.64; Range: 1.00-1.93; Status: F Lab Order: Salicylate Level; SPEC'M 10/20/16 23:10 Test: SALICYLATE LEVEL; Value: 2.2; Range: 5.0-30.0; Abnormal: Below low normal; Units: MG/DL; Status: F Lab Order: Thyroid Stimulating Hormone; SPEC'M 10/20/16 23:10 Test: THYROID STIMULATING HORMONE; Value: 4.730; Range: 0.358-3.740; Abnormal: Above high normal; Units: uIU/ML; Status: F Lab Order: Acetaminophen Level; SPEC'M 10/21/16 04:51 Test: ACETAMINOPHEN LEVEL; Value: < 2.0; Range: 10.0-30.0; Abnormal: Below low normal; Units: UG/ML; Status: F Lab Order: Salicylate Level; SPEC'M 10/21/16 04:51 Test: SALICYLATE LEVEL; Value: 2.1; Range: 5.0-30.0; Abnormal: Below low normal; Units: MG/DL; Status: F Radiology Order: EKG-ADULT Test: EKG-ADULT REASON FOR EXAMINATION: od; Stationary ECG Study; [facility] - ED; ; Test Date: 2016-10-20; Pat Name: JT COTO Department:; Room: -; 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 slm 12:04 Discharge ordered by Provider. fg 12:15 Discharge Assessment: Patient awake and alert. obeys commands, Oriented to person, ead place and time. patient administered narcotics - no. The following High Risk Discharge criteria are identified: Yes, Pt arrived with ETOH intoxication, pt evaluated by [facility] and provided safe discharge instructions. Discharged to home ambulatory, via cab provided by [facility]. Condition: improved. Discharge instructions given to patient, Instructed on discharge instructions, follow up and referral plans. Demonstrated understanding of instructions, Pt was receptive of discharge instructions/ teaching. No special radiology studies were completed. 12:16 Patient left the ED. ead Signatures: Dispatcher [employer] EDMS Jono Fuentes, PSA PSA cl Ellen, Homar, Security Aide Securpjf Kaleb, Soledad, PSA PSA ml4 Fidanalir, Carlos, Reg Reg kf3 Leigh Ann, Almas Austin, DO DO cs11 McLear, Rowan, WAREHOUSE DISTRIBUTION SPECIALIST WAREHOUSE DISTRIBUTION SPECIALIST tmm1 Edgar Celis mm15 Leola Sherman,HEAT TREAT TECHNICIAN HEAT TREAT TECHNICIAN Shauna Santoyo,RN RN Kerri Walker, Lead Shop Operator Unit Latoya Esteves,RN RN dick2 Annie Singh MD MD fg Smith, Kim,RN RN kas2 Mendy, Patricia Roque, Guille, WAREHOUSE DISTRIBUTION SPECIALIST WAREHOUSE DISTRIBUTION SPECIALIST jmv Ashleigh Ruth,RN RN tm5 Corrections: (The following items were deleted from the chart) 10/20 23:43 23:07 Presenting complaint: Patient states: pt states "I don't want to live anymore so tm5 tonight I have a lot of Alcohol to drink, I have smoked a lot of [place], I took some Percocet (unknown amount), I took some Ibuprofen also, My mom is dying & I don't want to be here without her", pt arrived with [facility] tm5 Chart Complete MTDD
--- NOTE | 2016-10-23 13:17 | EDDOCDS ---
Physician Documentation [facility] Name: Rajendra Coto Age: 36 yrs Sex: Male : 1980 Arrival Date: 10/20/2016 Time: 22:56 Bed OBSERVATION Private MD: Disposition: 10/21/16 12:04 Discharged to Home/Self Care. Impression: Bipolar disorder, current episode depressed, mild, Alcohol abuse. - Condition is Stable. - Discharge Instructions: Alcohol Intoxication. - Medication Reconciliation, Local Pharmacy Hours form. - Follow up: Private Physician; When: Call to arrange an appointment; Reason: Continuance of care. - Problem is chronic. - Symptoms have improved. Historical: - Allergies: No known drug Allergies; - Home Meds: 1. Percocet 5-325 mg Oral tab 1 tab every 4 hours 2. lisinopril 20 mg Oral tab 1 tab once daily - PMHx: Hypertension; Depression; Anxiety; - PSHx: Heart Surgery; - Social history: Smoking status: Patient states was never smoker of tobacco. Patient uses alcohol occasionally. street drugs, marijuana, No barriers to communication noted. - Family history: Not pertinent. - : The pt / caregiver states he / she is not on anticoagulants. Home medication list is obtained from the patient. - Exposure Risk Screening:: None identified. Vital Signs: 10/20 23:05 BP 125 / 82 (auto/); tm5 23:06 Pulse Ox 96% ; tm5 23:12 BP 125 / 82; Pulse 108; Resp 20; Temp 98.3(TE); Pulse Ox 98% on R/A; Weight 74.84 kg / tm5 164.99 lbs; Height 5 ft. 5 in. (165.10 cm); Pain 0/10; 23:30 BP 119 / 71 (auto/); tm5 23:31 Pulse 94 MON; Pulse Ox 95% on R/A; Pain 0/10; tm5 10/21 00:00 BP 119 / 74 (auto/); Pulse 103 MON; Resp 18 S; Pulse Ox 96% on R/A; tm5 00:00 tm5 00:30 BP 115 / 70 (auto/); tm5 00:30 Pulse 93 MON; tm5 01:00 BP 115 / 63 (auto/); tm5 01:01 Pulse 94 MON; tm5 01:30 BP 118 / 60 (auto/); tm5 01:31 Pulse 96 MON; tm5 02:00 BP 111 / 63 (auto/); tm5 02:01 Pulse 95 MON; tm5 02:30 BP 107 / 53 (auto/); tm5 02:30 Pulse 97 MON; tm5 03:00 BP 103 / 57 (auto/); tm5 03:00 Pulse 97 MON; tm5 03:30 BP 105 / 56 (auto/); tm5 03:30 Pulse 101 MON; Resp 18 S; Pulse Ox 98% on R/A; tm5 04:00 BP 107 / 57 (auto/); tm5 04:00 Pulse 98 MON; tm5 04:30 BP 101 / 57 (auto/); tm5 04:30 Pulse 109 MON; Resp 20 S; Pulse Ox 98% on R/A; tm5 05:35 BP 112 / 58; Pulse 98; Resp 20; Pulse Ox 99% on R/A; Pain 5/10; tm5 12:14 BP 147 / 97; Pulse 96; Resp 16; Temp 98.1(O); Pulse Ox 95% on R/A; Pain 0/10; ead 10/20 23:12 Body Mass Index 27.46 (74.84 kg, 165.10 cm) tm5 MDM: 10/20 23:06 Consult PFS/PSA/Equalizing Saw Operator ordered. cs11 23:06 Consult PFS/PSA/Equalizing Saw Operator: Patient's case requires discussion with on-call cs11 Psychiatrist ordered. 23:06 PSA/PFS to call Nursing Boilermaker Pipe Fitter, to enter patient data on [place] Safe Act if patient cs11 involuntarily admitted or transferred for SI or HI ordered. 23:06 Confirm accurate psychiatric medication list and times of last dosage ordered. cs11 23:06 Detain Pt Until Medically/PFS Cleared ordered. cs11 23:07 Acetaminophen Level Ordered. EDMS 23:07 Basic Metabolic Profile Ordered. EDMS 23:07 Complete Blood Count Ordered. EDMS 23:07 Drug Eval Toxicology ED Only Ordered. EDMS 23:07 Ethyl Alcohol (ethanol) Ordered. EDMS 23:07 Liver Profile Ordered. EDMS 23:07 Salicylate Level Ordered. EDMS 23:07 Thyroid Stimulating Hormone Ordered. EDMS 23:13 ECG WITH READING ER PHYS+CARDIAG ordered. EDMS 10/21 00:09 Acetaminophen Level Reviewed. cs11 00:09 Basic Metabolic Profile Reviewed. cs11 00:09 Complete Blood Count Reviewed. cs11 00:09 Ethyl Alcohol (ethanol) Reviewed. cs11 00:09 Salicylate Level Reviewed. cs11 00:09 Thyroid Stimulating Hormone Reviewed. cs11 00:09 Liver Profile Reviewed. cs11 04:41 Drug Eval Toxicology ED Only Reviewed. cs11 04:43 Acetaminophen Level Ordered. EDMS 04:43 Salicylate Level Ordered. EDMS 04:58 Acetaminophen Tablet 650 mg PO once ordered. tm5 05:35 REGULAR DIET PLASTIC PEDRO+DIET ordered. EDMS 05:39 Acetaminophen Level Reviewed. cs11 05:39 Salicylate Level Reviewed. cs11 05:43 Consult PFS/PSA/Socail Worker: Cleared medically for eval ordered. cs11 06:31 Consult PFS/PSA/Equalizing Saw Operator complete. tm5 06:31 Consult PFS/PSA/Equalizing Saw Operator: Patient's case requires discussion with on-call tm5 Psychiatrist complete. 08:03 Fioricet 1 tab-caps PO once ordered. fg 10:22 Financial registration complete. mm15 10:24 [facility] Payment Agreement was scanned into [employer] and attached to record. mm15 10:51 Consult PFS/PSA/Socail Worker: Cleared medically for eval complete. ml4 11:34 PSA/PFS to call Nursing Boilermaker Pipe Fitter, to enter patient data on [place] Safe Act if patient ml4 involuntarily admitted or transferred for SI or HI complete. 11:55 REGULAR DIET PLASTIC PEDRO+DIET ordered. EDMS 12:14 PSA Outpatient Referrals was scanned into [employer] and attached to record. ml4 12:53 T-Sheet-- Draft Copy was scanned into Web[employer] and attached to record. [facility] 10/22 17:41 [facility] Payment Agreement was scanned into [employer] and attached to record. kf3 Administered Medications: 10/21 04:59 Drug: Acetaminophen 650 mg [acetaminophen 325 mg tablet (2 tabs)] Route: PO; tm5 05:36 Follow up: Response: No Adverse Reaction; Pain is decreased tm5 09:36 Drug: Fioricet 1 tab-caps {Note: medication received from pharmacy.} Route: PO; ead Signatures: Dispatcher [employer] EDMS Soledad Manuel, PSA PSA ml4 Carlos Jones, Reg Reg kf3 César Nassar DO DO cs11 Edgar Celis mm15 Shauna Watters,RN RN Annie Brizuela MD MD fg Hoffert, Sarah se Ashleigh Ruth RN RN tm5 The chart was reviewed and I authenticate all verbal orders and agree with the evaluation and treatment provided.Attachments: 10:24 [facility] Payment Agreement mm15 12:53 T-Sheet-- Draft Copy [facility] 10/22 17:41 [facility] Payment Agreement kf3 Chart Complete MTDD
--- NOTE | 2016-10-23 13:17 | EDDOCDS ---
Physician Documentation [facility] Name: Rajendra Coto Age: 36 yrs Sex: Male : 1980 Arrival Date: 10/20/2016 Time: 22:56 Bed OBSERVATION Private MD: Disposition: 10/21/16 12:04 Discharged to Home/Self Care. Impression: Bipolar disorder, current episode depressed, mild, Alcohol abuse. - Condition is Stable. - Discharge Instructions: Alcohol Intoxication. - Medication Reconciliation, Local Pharmacy Hours form. - Follow up: Private Physician; When: Call to arrange an appointment; Reason: Continuance of care. - Problem is chronic. - Symptoms have improved. Historical: - Allergies: No known drug Allergies; - Home Meds: 1. Percocet 5-325 mg Oral tab 1 tab every 4 hours 2. lisinopril 20 mg Oral tab 1 tab once daily - PMHx: Hypertension; Depression; Anxiety; - PSHx: Heart Surgery; - Social history: Smoking status: Patient states was never smoker of tobacco. Patient uses alcohol occasionally. street drugs, marijuana, No barriers to communication noted. - Family history: Not pertinent. - : The pt / caregiver states he / she is not on anticoagulants. Home medication list is obtained from the patient. - Exposure Risk Screening:: None identified. Vital Signs: 10/20 23:05 BP 125 / 82 (auto/); tm5 23:06 Pulse Ox 96% ; tm5 23:12 BP 125 / 82; Pulse 108; Resp 20; Temp 98.3(TE); Pulse Ox 98% on R/A; Weight 74.84 kg / tm5 164.99 lbs; Height 5 ft. 5 in. (165.10 cm); Pain 0/10; 23:30 BP 119 / 71 (auto/); tm5 23:31 Pulse 94 MON; Pulse Ox 95% on R/A; Pain 0/10; tm5 10/21 00:00 BP 119 / 74 (auto/); Pulse 103 MON; Resp 18 S; Pulse Ox 96% on R/A; tm5 00:00 tm5 00:30 BP 115 / 70 (auto/); tm5 00:30 Pulse 93 MON; tm5 01:00 BP 115 / 63 (auto/); tm5 01:01 Pulse 94 MON; tm5 01:30 BP 118 / 60 (auto/); tm5 01:31 Pulse 96 MON; tm5 02:00 BP 111 / 63 (auto/); tm5 02:01 Pulse 95 MON; tm5 02:30 BP 107 / 53 (auto/); tm5 02:30 Pulse 97 MON; tm5 03:00 BP 103 / 57 (auto/); tm5 03:00 Pulse 97 MON; tm5 03:30 BP 105 / 56 (auto/); tm5 03:30 Pulse 101 MON; Resp 18 S; Pulse Ox 98% on R/A; tm5 04:00 BP 107 / 57 (auto/); tm5 04:00 Pulse 98 MON; tm5 04:30 BP 101 / 57 (auto/); tm5 04:30 Pulse 109 MON; Resp 20 S; Pulse Ox 98% on R/A; tm5 05:35 BP 112 / 58; Pulse 98; Resp 20; Pulse Ox 99% on R/A; Pain 5/10; tm5 12:14 BP 147 / 97; Pulse 96; Resp 16; Temp 98.1(O); Pulse Ox 95% on R/A; Pain 0/10; ead 10/20 23:12 Body Mass Index 27.46 (74.84 kg, 165.10 cm) tm5 MDM: 10/20 23:06 Consult PFS/PSA/Conservation Of Resources Commissioner ordered. cs11 23:06 Consult PFS/PSA/Conservation Of Resources Commissioner: Patient's case requires discussion with on-call cs11 Psychiatrist ordered. 23:06 PSA/PFS to call Nursing Oxyacetylene Cutter, to enter patient data on [place] Safe [place] if patient cs11 involuntarily admitted or transferred for SI or HI ordered. 23:06 Confirm accurate psychiatric medication list and times of last dosage ordered. cs11 23:06 Detain Pt Until Medically/PFS Cleared ordered. cs11 23:07 Acetaminophen Level Ordered. EDMS 23:07 Basic Metabolic Profile Ordered. EDMS 23:07 Complete Blood Count Ordered. EDMS 23:07 Drug Eval Toxicology ED Only Ordered. EDMS 23:07 Ethyl Alcohol (ethanol) Ordered. EDMS 23:07 Liver Profile Ordered. EDMS 23:07 Salicylate Level Ordered. EDMS 23:07 Thyroid Stimulating Hormone Ordered. EDMS 23:13 ECG WITH READING ER PHYS+CARDIAG ordered. EDMS 10/21 00:09 Acetaminophen Level Reviewed. cs11 00:09 Basic Metabolic Profile Reviewed. cs11 00:09 Complete Blood Count Reviewed. cs11 00:09 Ethyl Alcohol (ethanol) Reviewed. cs11 00:09 Salicylate Level Reviewed. cs11 00:09 Thyroid Stimulating Hormone Reviewed. cs11 00:09 Liver Profile Reviewed. cs11 04:41 Drug Eval Toxicology ED Only Reviewed. cs11 04:43 Acetaminophen Level Ordered. EDMS 04:43 Salicylate Level Ordered. EDMS 04:58 Acetaminophen Tablet 650 mg PO once ordered. tm5 05:35 REGULAR DIET PLASTIC PEDRO+DIET ordered. EDMS 05:39 Acetaminophen Level Reviewed. cs11 05:39 Salicylate Level Reviewed. cs11 05:43 Consult PFS/PSA/Socail Worker: Cleared medically for eval ordered. cs11 06:31 Consult PFS/PSA/Conservation Of Resources Commissioner complete. tm5 06:31 Consult PFS/PSA/Conservation Of Resources Commissioner: Patient's case requires discussion with on-call tm5 Psychiatrist complete. 08:03 Fioricet 1 tab-caps PO once ordered. fg 10:22 Financial registration complete. mm15 10:24 [facility] Payment Agreement was scanned into [employer] and attached to record. mm15 10:51 Consult PFS/PSA/Socail Worker: Cleared medically for eval complete. ml4 11:34 PSA/PFS to call Nursing Oxyacetylene Cutter, to enter patient data on [place] Safe Act if patient ml4 involuntarily admitted or transferred for SI or HI complete. 11:55 REGULAR DIET PLASTIC PEDRO+DIET ordered. EDMS 12:14 PSA Outpatient Referrals was scanned into [employer] and attached to record. ml4 12:53 T-Sheet-- Draft Copy was scanned into [employer] and attached to record. [facility] 10/22 17:41 [facility] Payment Agreement was scanned into [employer] and attached to record. kf3 Administered Medications: 10/21 04:59 Drug: Acetaminophen 650 mg [acetaminophen 325 mg tablet (2 tabs)] Route: PO; tm5 05:36 Follow up: Response: No Adverse Reaction; Pain is decreased tm5 09:36 Drug: Fioricet 1 tab-caps {Note: medication received from pharmacy.} Route: PO; ead Signatures: Dispatcher [employer] EDMS Soledad Manuel, PSA PSA ml4 Carlos Jones, Reg Reg kf3 César Nassar DO DO cs11 Edgar Celis mm15 Shauna Watters,RN RN Annie Brizuela MD MD fg Hoffert, Sarah se Ashleigh Ruth RN RN tm5 The chart was reviewed and I authenticate all verbal orders and agree with the evaluation and treatment provided.Attachments: 10:24 [facility] Payment Agreement mm15 12:53 T-Sheet-- Draft Copy [facility] 10/22 17:41 [facility] Payment Agreement kf3 Chart Complete MTDD
== END 2016-10-21 12:16 | disposition home or self-care (01) ==
LOC: M ED 22:56
DX: F10.129 Alcohol abuse with intoxication, unspecified (principal); R45.851 Suicidal ideations; I10 Essential (primary) hypertension; F32.9 Major depressive disorder, single episode, unspecified; F41.9 Anxiety disorder, unspecified; Z79.899 Other long term (current) drug therapy; Z79.891 Long term (current) use of opiate analgesic
CPT/HCPCS: 36415; 80048; 80076; 80306; 84443; 85027; 93005; 99285; G0480

== ENCOUNTER 2016-10-25 10:10 | Emergency (ER) | payer MEDICAID | END 2016-10-25 15:31 | disposition left against medical advice (07) | LOC: M ED 10:10 | DX: Z04.3 Encounter for examination and observation following other accident (principal); Z53.21 Procedure and treatment not carried out due to patient leaving prior to being seen by health care provider ==

== ENCOUNTER 2016-10-25 19:52 | Emergency (ER) | payer MEDICAID ==
[2016-10-25 20:46] LABS: MEAN CORPUSCULAR HEMOGLOBIN 29.2 pg (27.0-33.0); MEAN CORPUSCULAR HGB CONC 34.2 g/dl (32.0-36.5); MEAN CORPUSCULAR VOLUME 85.4 fl (80.0-96.0); RED CELL DISTRIBUTION WIDTH 13.7 % (11.5-14.5); WHITE BLOOD COUNT 7.8 K/mm3 (4.0-10.0)
[2016-10-25 21:17] LABS: ALBUMIN 3.8 GM/DL (3.2-5.2); ALBUMIN/GLOBULIN RATIO 1.58 (1.00-1.93); ALKALINE PHOSPHATASE 97 U/L (45-117); ALT/SGPT 32 U/L (12-78); ANION GAP 8 MEQ/L (8-16); AST/SGOT 33 U/L (15-37); BILIRUBIN,DIRECT 0.1 MG/DL (0.0-0.2); BILIRUBIN,TOTAL 0.4 MG/DL (0.2-1.0); BLOOD UREA NITROGEN 15 MG/DL (7-18); CALCIUM LEVEL 6.7 MG/DL (8.5-10.1); CARBON DIOXIDE LEVEL 30 MEQ/L (21-32); CHLORIDE LEVEL 105 MEQ/L (98-107); CREATININE FOR GFR 1.04 MG/DL (0.70-1.30); GLOMERULAR FILTRATION RATE > 60.0 (>60); GLUCOSE, FASTING 99 MG/DL (70-105); POTASSIUM SERUM 3.2 MEQ/L (3.5-5.1); SODIUM LEVEL 143 MEQ/L (136-145); TOTAL PROTEIN 6.2 GM/DL (6.4-8.2)
[2016-10-25 21:29] LABS: AMPHETAMINES LEVEL URINE NEGATIVE (NEGATIVE); BENZODIAZEPINES URINE NEGATIVE (NEGATIVE); COCAINE METABOLITE URINE NEGATIVE (NEGATIVE); CONTROL LINE INT CTR LINE PRESENT; METHADONE URINE NEGATIVE (NEGATIVE); OPIATES URINE NEGATIVE (NEGATIVE); TRICYCLIC ANTIDEPRESS URINE NEGATIVE (NEGATIVE)
[2016-10-25] MEDS ORDERED: POTASSIUM CHLORIDE 10 MEQ SR TABLET As Ordered ONE (22:18)
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
--- NOTE | 2016-10-26 02:08 | EDDOCDS ---
Physician Documentation [facility] Name: Rajendra Coto Age: 36 yrs Sex: Male : 1980 Arrival Date: 10/25/2016 Time: 19:52 Bed OBSERVATION Private MD: No Pcp Disposition: 10/26/16 00:13 Transfer ordered to [facility]. Diagnosis is Adjustment disorder with depressed mood. - Reason for transfer: Higher level of care. - Accepting physician is Dr. Alarcon. - Condition is Stable. - Problem is new. - Symptoms are unchanged. Historical: - Allergies: No known drug Allergies; - Home Meds: 1. lisinopril 20 mg Oral tab 1 tab once daily (Last dose: 10/22/2016) 2. albuterol sulfate 90 mcg/actuation Inhl HFAA 1 puff every 4 hours - PMHx: Anxiety; Depression; Hypertension; Chronic Back pain; - PSHx: Doesn't remember; - Social history: Smoking status: Patient uses tobacco products, current every day smoker. Patient uses alcohol on a daily basis. street drugs, heroin, No barriers to communication noted, The patient speaks fluent Marshallese, Speaks appropriately for age, Preferred Language: Marshallese. - Family history: Not pertinent. - : The pt / caregiver states he / she is not on anticoagulants. Home medication list is obtained from the patient. - Exposure Risk Screening:: None identified. Vital Signs: 10/25 19:54 BP 163 / 104; Pulse 99; Resp 18 S; Temp 98.6(O); Pulse Ox 95% on R/A; Weight 77.11 kg / gr2 170 lbs (R); Height 5 ft. 5 in. (165.10 cm) (R); Pain 5/10; 20:28 BP 142 / 90; Pulse 82; Resp 18; Pulse Ox 99% ; mas 10/26 02:03 BP 142 / 99; Pulse 76; Resp 18; Temp 97.8(O); Pulse Ox 99% on R/A; Pain 4/10; kas2 10/25 19:54 Body Mass Index 28.29 (77.11 kg, 165.10 cm) gr2 MDM: 10/25 20:14 Consult PFS/PSA/Bolt Maker ordered. br1 20:14 Consult PFS/PSA/Bolt Maker: Patient's case requires discussion with on-call br1 Psychiatrist ordered. 20:14 PSA/PFS to call Nursing Office Administrator, to enter patient data on [place] Safe [place] if patient br1 involuntarily admitted or transferred for SI or HI ordered. 20:14 Confirm accurate psychiatric medication list and times of last dosage ordered. br1 20:14 Detain Pt Until Medically/PFS Cleared ordered. br1 20:16 Acetaminophen Level Ordered. EDMS 20:16 Basic Metabolic Profile Ordered. EDMS 20:16 Complete Blood Count Ordered. EDMS 20:16 Drug Eval Toxicology ED Only Ordered. EDMS 20:16 Ethyl Alcohol (ethanol) Ordered. EDMS 20:16 Liver Profile Ordered. EDMS 20:16 Salicylate Level Ordered. EDMS 20:16 Thyroid Stimulating Hormone Ordered. EDMS 20:40 Consult PFS/PSA/Bolt Maker complete. kas2 20:47 Consult PFS/PSA/Bolt Maker: Patient's case requires discussion with on-call ml4 Psychiatrist complete. 20:47 PSA/PFS to call Nursing Office Administrator, to enter patient data [place] Safe [place] if patient ml4 involuntarily admitted or transferred for SI or HI complete. 21:45 Financial registration complete. zo 21:46 [facility] [place] was [place] into [employer] and attached to record. zo 21:50 Acetaminophen Level Reviewed. br1 21:50 Basic Metabolic Profile Reviewed. br1 21:50 Complete Blood Count Reviewed. br1 21:50 Drug Eval Toxicology ED Only Reviewed. br1 21:50 Liver Profile Reviewed. br1 21:50 Salicylate Level Reviewed. br1 21:50 Ethyl Alcohol (ethanol) Reviewed. br1 21:50 Thyroid Stimulating Hormone Reviewed. br1 21:51 Potassium Chloride Extended Release Tablet 40 mEq PO once ordered. br1 21:51 Consult PFS/PSA/Socail Worker: Cleared medically for eval ordered. br1 21:51 Consult PFS/PSA/Socail Worker: Cleared medically for eval complete. ml4 22:02 ECG WITH READING ER PHYS+CARDIAG ordered. EDMS 10/26 00:24 [facility] Legal paperwork was scanned into [employer] and attached to record. cl Administered Medications: 10/25 22:28 Drug: Potassium Chloride 40 mEq [potassium chloride ER 10 mEq tablet,extended release cjh (4 tabs)] Route: PO; Signatures: Dispatcher [employer] EDMS Jono Fuentes, PSA PSA cl Soledad Manuel, PSA PSA ml4 Richard Lira LisaRN RN lf1 Ed Garces MD MD br1 Elena Maynard RN RN sls1 Alma Salazar RN RN [facility] Selam Castro,RN RN kas2 The chart was reviewed and I authenticate all verbal orders and agree with the evaluation and treatment provided.Attachments: 21:46 [facility] [place] zo [id number]
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
--- NOTE | 2016-10-28 03:08 | EDDOCDS ---
Physician Documentation [facility] Name: Rajendra Coto Age: 36 yrs Sex: Male : 1980 Arrival Date: 10/25/2016 Time: 19:52 Bed OBSERVATION Private MD: No Pcp Disposition: 10/26/16 00:13 Transfer ordered to [facility]. Diagnosis is Adjustment disorder with depressed mood. - Reason for transfer: Higher level of care. - Accepting physician is Dr. Alarcon. - Condition is Stable. - Problem is new. - Symptoms are unchanged. Historical: - Allergies: No known drug Allergies; - Home Meds: 1. lisinopril 20 mg Oral tab 1 tab once daily (Last dose: 10/22/2016) 2. albuterol sulfate 90 mcg/actuation Inhl HFAA 1 puff every 4 hours - PMHx: Anxiety; Depression; Hypertension; Chronic Back pain; - PSHx: Doesn't remember; - Social history: Smoking status: Patient uses tobacco products, current every day smoker. Patient uses alcohol on a daily basis. street drugs, heroin, No barriers to communication noted, The patient speaks fluent Azerbaijani, Speaks appropriately for age, Preferred Language: Azerbaijani. - Family history: Not pertinent. - : The pt / caregiver states he / she is not on anticoagulants. Home medication list is obtained from the patient. - Exposure Risk Screening:: None identified. Vital Signs: 10/25 19:54 BP 163 / 104; Pulse 99; Resp 18 S; Temp 98.6(O); Pulse Ox 95% on R/A; Weight 77.11 kg / gr2 170 lbs (R); Height 5 ft. 5 in. (165.10 cm) (R); Pain 5/10; 20:28 BP 142 / 90; Pulse 82; Resp 18; Pulse Ox 99% ; mas 10/26 02:03 BP 142 / 99; Pulse 76; Resp 18; Temp 97.8(O); Pulse Ox 99% on R/A; Pain 4/10; kas2 10/25 19:54 Body Mass Index 28.29 (77.11 kg, 165.10 cm) gr2 MDM: 10/25 20:14 Consult PFS/PSA/Flexible Shaft Winder ordered. br1 20:14 Consult PFS/PSA/Flexible Shaft Winder: Patient's case requires discussion with on-call br1 Psychiatrist ordered. 20:14 PSA/PFS to call Nursing Dry Cleaner Presser, to enter patient data on [place] Safe [place] if patient br1 involuntarily admitted or transferred for SI or HI ordered. 20:14 Confirm accurate psychiatric medication list and times of last dosage ordered. br1 20:14 Detain Pt Until Medically/PFS Cleared ordered. br1 20:16 Acetaminophen Level Ordered. EDMS 20:16 Basic Metabolic Profile Ordered. EDMS 20:16 Complete Blood Count Ordered. EDMS 20:16 Drug Eval Toxicology ED Only Ordered. EDMS 20:16 Ethyl Alcohol (ethanol) Ordered. EDMS 20:16 Liver Profile Ordered. EDMS 20:16 Salicylate Level Ordered. EDMS 20:16 Thyroid Stimulating Hormone Ordered. EDMS 20:40 Consult PFS/PSA/Flexible Shaft Winder complete. kas2 20:47 Consult PFS/PSA/Flexible Shaft Winder: Patient's case requires discussion with on-call ml4 Psychiatrist complete. 20:47 PSA/PFS to call Nursing Dry Cleaner Presser, to enter [place] data [place] Safe [place] if patient ml4 involuntarily admitted or transferred for SI or HI complete. 21:45 Financial registration complete. zo 21:46 [facility] Payment Agreement was scanned into [employer] and attached to record. zo 21:50 Acetaminophen Level Reviewed. br1 21:50 Basic Metabolic Profile Reviewed. br1 21:50 Complete Blood Count Reviewed. br1 21:50 Drug Eval Toxicology ED Only Reviewed. br1 21:50 Liver Profile Reviewed. br1 21:50 Salicylate Level Reviewed. br1 21:50 Ethyl Alcohol (ethanol) Reviewed. br1 21:50 Thyroid Stimulating Hormone Reviewed. br1 21:51 Potassium Chloride Extended Release Tablet 40 mEq PO once ordered. br1 21:51 Consult PFS/PSA/Socail Worker: Cleared medically for eval ordered. br1 21:51 Consult PFS/PSA/Socail Worker: Cleared medically for eval complete. ml4 22:02 ECG WITH READING ER PHYS+CARDIAG ordered. EDMS 02 00:24 [facility] Legal paperwork was scanned into mc[employer]EL and attached to record. cl 10:55 T-Sheet-- Draft Copy was scanned into mc[employer]EL and attached to record. gb Administered Medications: 10/25 22:28 Drug: Potassium Chloride 40 mEq [potassium chloride ER 10 mEq tablet,extended release cjh (4 tabs)] Route: PO; Signatures: Dispatcher [employer] EDMS Jono Fuentes, PSA PSA cl Barfaizan, Vanessa, Reg Reg gb KalebSoledad, PSA PSA ml4 Richard Liar LisaRN RN lf1 Ed Garces MD MD br1 Elena Maynard RN RN sls1 Alma Salazar RN RN [facility] Selam CastroRN RN kas2 The chart was reviewed and I authenticate all verbal orders and agree with the evaluation and treatment provided.Attachments: 21:46 [facility] Payment Agreement zo 10:55 T-Sheet-- Draft Copy gb Chart Complete MTDD
--- NOTE | 2016-10-28 03:08 | EDDOCDS ---
Physician Documentation [facility] Name: Rajendra Coto Age: 36 yrs Sex: Male : 1980 Arrival Date: 10/25/2016 Time: 19:52 Bed OBSERVATION Private MD: No Pcp Disposition: 10/26/16 00:13 Transfer ordered to [facility]. Diagnosis is Adjustment disorder with depressed mood. - Reason for transfer: Higher level of care. - Accepting physician is Dr. Alarcon. - Condition is Stable. - Problem is new. - Symptoms are unchanged. Historical: - Allergies: No known drug Allergies; - Home Meds: 1. lisinopril 20 mg Oral tab 1 tab once daily (Last dose: 10/22/2016) 2. albuterol sulfate 90 mcg/actuation Inhl HFAA 1 puff every 4 hours - PMHx: Anxiety; Depression; Hypertension; Chronic Back pain; - PSHx: Doesn't remember; - Social history: Smoking status: Patient uses tobacco products, current every day smoker. Patient uses alcohol on a daily basis. street drugs, heroin, No barriers to communication noted, The patient speaks fluent Azerbaijani, Speaks appropriately for age, Preferred Language: Azerbaijani. - Family history: Not pertinent. - : The pt / caregiver states he / she is not on anticoagulants. Home medication list is obtained from the patient. - Exposure Risk Screening:: None identified. Vital Signs: 10/25 19:54 BP 163 / 104; Pulse 99; Resp 18 S; Temp 98.6(O); Pulse Ox 95% on R/A; Weight 77.11 kg / gr2 170 lbs (R); Height 5 ft. 5 in. (165.10 cm) (R); Pain 5/10; 20:28 BP 142 / 90; Pulse 82; Resp 18; Pulse Ox 99% ; mas 10/26 02:03 BP 142 / 99; Pulse 76; Resp 18; Temp 97.8(O); Pulse Ox 99% on R/A; Pain 4/10; kas2 10/25 19:54 Body Mass Index 28.29 (77.11 kg, 165.10 cm) gr2 MDM: 10/25 20:14 Consult PFS/PSA/Deputy Grand Jury ordered. br1 20:14 Consult PFS/PSA/Deputy Grand Jury: Patient's case requires discussion with on-call br1 Psychiatrist ordered. 20:14 PSA/PFS to call Nursing Attending Ambulatory Care, to [place] data [place] if patient br1 involuntarily admitted or transferred for SI or HI ordered. 20:14 Confirm accurate psychiatric medication list and times of last dosage ordered. br1 20:14 Detain Pt Until Medically/PFS Cleared ordered. br1 20:16 Acetaminophen Level Ordered. EDMS 20:16 Basic Metabolic Profile Ordered. EDMS 20:16 Complete Blood Count Ordered. EDMS 20:16 Drug Eval Toxicology ED Only Ordered. EDMS 20:16 Ethyl Alcohol (ethanol) Ordered. EDMS 20:16 Liver Profile Ordered. EDMS 20:16 Salicylate Level Ordered. EDMS 20:16 Thyroid Stimulating Hormone Ordered. EDMS 20:40 Consult PFS/PSA/Deputy Grand Jury complete. kas2 20:47 Consult PFS/PSA/Deputy Grand Jury: Patient's case requires discussion with on-call ml4 Psychiatrist complete. 20:47 PSA/PFS to call Nursing Attending Ambulatory Care, to [place] data [place] if patient ml4 involuntarily admitted or transferred for SI or HI complete. 21:45 Financial registration complete. zo 21:46 [facility] Payment Agreement was scanned into [employer] and attached to record. zo 21:50 Acetaminophen Level Reviewed. br1 21:50 Basic Metabolic Profile Reviewed. br1 21:50 Complete Blood Count Reviewed. br1 21:50 Drug Eval Toxicology ED Only Reviewed. br1 21:50 Liver Profile Reviewed. br1 21:50 Salicylate Level Reviewed. br1 21:50 Ethyl Alcohol (ethanol) Reviewed. br1 21:50 Thyroid Stimulating Hormone Reviewed. br1 21:51 Potassium Chloride Extended Release Tablet 40 mEq PO once ordered. br1 21:51 Consult PFS/PSA/Socail Worker: Cleared medically for eval ordered. br1 21:51 Consult PFS/PSA/Socail Worker: Cleared medically for eval complete. ml4 22:02 ECG WITH READING ER PHYS+CARDIAG ordered. EDMS 02 00:24 [facility] Legal paperwork was scanned into [employer] and attached to record. cl 10:55 T-Sheet-- Draft Copy was scanned into [employer] and attached to record. gb Administered Medications: 10/25 22:28 Drug: Potassium Chloride 40 mEq [potassium chloride ER 10 mEq tablet,extended release cjh (4 tabs)] Route: PO; Signatures: Dispatcher [employer] EDMS Jono Fuentes, PSA PSA cl Barfaizan, Vanessa, Reg Reg gb KalebSoledad, PSA PSA ml4 Richard Lira LisaRN RN lf1 Ed Garces MD MD br1 Elena Maynard RN RN sls1 Alma Salazar RN RN [facility] Selam CastroRN RN kas2 The chart was reviewed and I authenticate all verbal orders and agree with the evaluation and treatment provided.Attachments: 21:46 [facility] Payment Agreement zo 10:55 T-Sheet-- Draft Copy gb Chart Complete MTDD
== END 2016-10-26 02:07 ==
LOC: M ED 19:52
DX: F43.21 Adjustment disorder with depressed mood (principal); F41.9 Anxiety disorder, unspecified; F32.9 Major depressive disorder, single episode, unspecified; I10 Essential (primary) hypertension; M54.9 Dorsalgia, unspecified; F17.210 Nicotine dependence, cigarettes, uncomplicated; Z79.51 Long term (current) use of inhaled steroids; Z79.899 Other long term (current) drug therapy
CPT/HCPCS: 36415; 80048; 80076; 80306; 84443; 85027; 99285; G0480